=== PATIENT | female | born 2000 | race Two or more races ===

== ENCOUNTER 2022-08-30 16:32 | Emergency (ER) | payer OTHER ==
[~2022-08-30] VITALS: Ht 157.5 cm; Wt 53.1 kg
[2022-08-30] MEDS ORDERED: ACET500T58 PO (20:54)
[2022-08-30] MEDS ORDERED: AMOX875T4 PO (20:54)
[2022-08-30] MEDS ORDERED: TETANUS-DIPTH-ACEL PERTUSSIS 0.5ML SYR Tdap IM ONE (21:00)
[2022-08-30 21:12] VITALS: BP 126/79
== END 2022-08-30 21:47 | disposition home or self-care (01) ==
LOC: ER 16:32
DX: S61.452A Open bite of left hand, initial encounter (principal); Z88.6 Allergy status to analgesic agent; W55.01XA Bitten by cat, initial encounter; Y93.89 Activity, other specified; Y92.89 Other specified places as the place of occurrence of the external cause; Y99.8 Other external cause status
CPT/HCPCS: 90471; 90715